=== PATIENT | female | born 1980 | race Caucasian/White ===

== ENCOUNTER 2019-11-27 08:44 | Outpatient (CLI) | payer BC, SELFPAY ==
--- NOTE | ~2019-11-27 | US_ITS ---
EXAMINATION: US aorta DATE: 11/27/2019 09:24 INDICATION: Family history of ischemic heart disease. TECHNIQUE: Grayscale, color Doppler, and pulsed Doppler images of the aorta and common iliac arteries were obtained. COMPARISON: None. FINDINGS: The aorta is normal in caliber and demonstrates mild atherosclerosis. The right common iliac artery i s normal in caliber. The left common iliac artery is normal in caliber. IMPRESSION: 1. No abdominal aortic aneurysm. Reviewed, dictated and finalized at location A.
== END 2019-11-27 08:45 | disposition home or self-care (01) ==
LOC: ANHIMG 08:49
PROVIDERS: PCP Family Medicine; Visit Provider Family Medicine
DX: Z82.49 Family history of ischemic heart disease and other diseases of the circulatory system (principal)
CPT/HCPCS: 76775

== ENCOUNTER → 2020-09-21 14:44 | Outpatient (CLI) | payer BC, SELFPAY ==
--- NOTE | ~2020-09-21 | XR_ITS ---
XR foot RT min 3V DATE: 09/21/2020 14:57 INDICATION: Lateral pain for 2 days after intensive workout TECHNIQUE: 4 views COMPARISON: None FINDINGS: No fracture or dislocation, periosteal reaction or bone destruction. Mild hallux valgus and bunion deformity. IMPRESSION: No acute abnormality Reviewed, dictated and finalized at location A. IMPRESSION: No acute abnormality
== END ==
PROVIDERS: PCP Family Medicine; Visit Provider Family Medicine
DX: M79.671 Pain in right foot (principal)
CPT/HCPCS: 73630

== ENCOUNTER 2021-10-20 07:35 | Outpatient (CLI) | payer BC, SELFPAY ==
--- NOTE | ~2021-10-20 | US_ITS ---
EXAMINATION: US aorta DATE: 10/20/2021 08:22 CDT INDICATION: Family history of ischemic heart disease and abdominal aortic aneurysm. TECHNIQUE: Grayscale, color Doppler, and pulsed Doppler images of the aorta and common iliac arteries were obtained. COMPARISON: None. FINDINGS: The proximal aorta measures 2.7 cm greatest sagittal dimension. The mid aorta measures 2.4 cm greates t sagittal dimension. The distal aorta measures 1.8 cm greatest sagittal dimension. The right common internal iliac artery measures 1.1. The left common iliac artery measures 1.1. IMPRESSION: 1. Normal caliber aorta without evidence for aneurysm. Reviewed, dictated and finalized at location B.
== END 2021-10-20 07:36 | disposition home or self-care (01) ==
PROVIDERS: PCP Family Medicine; Visit Provider Nurse Practitioner Family
DX: Z82.49 Family history of ischemic heart disease and other diseases of the circulatory system (principal)
CPT/HCPCS: 76775

== ENCOUNTER 2022-08-23 16:37 | Emergency (ER) | payer BC, SELFPAY ==
--- NOTE | ~2022-08-23 | XR_ITS ---
EXAM: XR toe 5th LT min 2V DATE: 08/23/2022 18:57 HISTORY: post reduction . COMPARISON: Same date at 5:47 PM. FINDINGS/IMPRESSION: Unchanged alignment of the mildly displaced oblique fracture of the distal aspec t of the left fifth proximal phalange. No acute interval finding. Reviewed, dictated and finalized at location K.
--- NOTE | ~2022-08-23 | XR_ITS ---
EXAM: XR toe 5th LT min 2V DATE: 08/23/2022 18:02 HISTORY: Left 5th toe stubbed into dresser. bruising . COMPARISON: None available. FINDINGS: Normal mineralization. Oblique fracture of the distal aspect of the fifth proximal phalang e, with 2 mm lateral and 3 mm anterior displacement. No lytic or blastic lesion. Joint spaces and phy ses are maintained. No erosion or periosteal change. Soft tissues within normal limits. IMPRESSION: Mildly displaced oblique fracture of the distal aspect of the left fifth proximal phalang e. Reviewed, dictated and finalized at location K. IMPRESSION: Mildly displaced oblique fracture of the distal aspect of the left fifth proximal phalange.
[2022-08-23 17:18] VITALS: BP 145/96; PULSE 88; RESP 14; TEMP 36.8; O2SAT 100
--- NOTE | 2022-08-23 18:45 | ED.LOWEXIN ---
HPI - Extremity Injury (Lower) General Chief Complaint: Extremity Injury, Lower Stated Complaint: Left smallest toe broken Time Seen by Provider: 08/23/22 17:30 History of Present Illness HPI Narrative: Patient is a 42-year-old female here for evaluation of left fifth toe injury. Patient states that she stubbed her toe on the bed frame and since then she has had deformity bruising and pain to the left fifth toe. Denies further injury. Related Data Allergies Allergy/AdvReac Type Severity Reaction Status Date / Time Penicillins Allergy Unknown Unknown Verified 08/23/22 17:30 Review of Systems Review of Systems: Gen.: Denies fevers or chills Eyes: Denies eye pain or visual change ENT: Denies congestion Respiratory: Denies shortness of breath or cough CV: Denies chest pain or palpitations GI: Denies abdominal pain nausea, emesis or diarrhea denies burning, urgency, frequency or hematuria Musculoskeletal: Reports toe pain Neuro: Denies numbness, tingling, weakness or focal weakness Skin: Denies rash Except as documented, all other systems reviewed and negative PMFSH Past Medical History Medical History Acute bronchitis Acute pain of right foot Alopecia BMI 33.0-33.9,adult BMI 39.0-39.9,adult COVID-19 (12/19/19) Encounter for wellness examination in adult Family history of abdominal aortic aneurysm Obesity (BMI 30-39.9) Unspecified dermatitis due to sun Family History Family History (Updated 06/24/18 @ 14:31 by DOCTOR UNKNOWN) Grandparent Diabetes mellitus Hypertension Sibling Hypertension Social History Social History (Updated 03/13/22 @ 13:21 by Sara Butcher MA) Smoking status: Never smoker Alcohol intake: never Substance use: never Substance use type: does not use Lack of Transportation: No Lack of Food: Never True Current Housing: I Have Housing Concerned About Future Housing: No Difficulty Paying Gas/Electric Bills: No Difficulty Paying for Meds: No Currently Unemployed: No Education: High School Diploma/GED Difficulty w/ Childcare or Family Care: No Exam Narrative: Gen: Alert, oriented, no acute distress Eyes: EOMI, no icterus Pulm: Respirations even and unlabored, symmetric thorax expansion, no audible stridor or visible cyanosis CV: Regular rate per telemetry GI: No distension, no voluntary/involuntary guarding Neuro: AOx4, moves all extremities without apparent difficulty or weakness, follows commands CV: 2+ DP and PT pulses bilaterally. MSK: There is an area of bruising to the base of the left fifth toe and there is a deformity to the fifth toe, tenderness to palpation at the base. Skin: No jaundice, no visible bruising, rashes, lesions or wounds on exposed skin Psych: Normal mood/affect, insight/judgement good, adequate fund of knowledge, recent/remote memory intact Course Vital Signs Vital signs: Vital Signs Temperature 98.3 F 08/23/22 17:18 Pulse Rate 88 08/23/22 17:18 Respiratory Rate 14 08/23/22 17:18 Blood Pressure 145/96 H 08/23/22 17:18 Pulse Oximetry 100 08/23/22 17:18 Oxygen Delivery Room Air 08/23/22 17:18 Temperature 98.3 F 08/23/22 17:18 Pulse Rate 88 08/23/22 17:18 Respiratory Rate 14 08/23/22 17:18 Blood Pressure 145/96 H 08/23/22 17:18 Pulse Oximetry 100 08/23/22 17:18 Oxygen Delivery Room Air 08/23/22 17:18 Procedures Orthopedic Fracture Reduction Fracture #1: Fracture Reduction date: 08/23/22 Fracture Reduction time: 18:46 Side: left Fracture Reduction Location: toe Analgesia: nerve block Pre-Procedure Neuro Vascular Exam: normal Technique: direct manipulation Post-reduction neuro exam: intact Post-reduction vascular exam: intact Splint Applied: No (sammy tape) Patient Tolerated Procedure: well MDM - Extremity Injury (Lower) MDM Narrative M
== END 2022-08-23 19:05 | disposition home or self-care (01) ==
PROVIDERS: Emergency Provider Physician Assistant; PCP Family Medicine
DX: S92.512A Displaced fracture of proximal phalanx of left lesser toe(s), initial encounter for closed fracture (principal); E66.9 Obesity, unspecified; Z68.38 Body mass index [BMI] 38.0-38.9, adult; Z86.16 Personal history of COVID-19; W22.03XA Walked into furniture, initial encounter
CPT/HCPCS: 28515; 73660; 99285

== ENCOUNTER 2024-08-02 07:10 | Outpatient (CLI) | payer OTHER, SELFPAY ==
--- NOTE | ~2024-08-02 | MM_ITS ---
EXAMINATION: MM screening adán BI w lorrie HISTORY: Screening TECHNIQUE: Craniocaudal and mediolateral oblique 3-D tomosynthesis images were obtained and synthetic 2-D images were generated. CAD analysis was submitted and interpreted. COMPARISON: No prior mammogram is available for comparison at this institution. BREAST PARENCHYMAL COMPOSITION: Not dense: There are scattered areas of fibroglandular density. FINDINGS: There is no evidence of suspicious mass, calcification, or architectural distortion to sugg est malignancy in either breast. There has been no suspicious interval change. IMPRESSION: 1. No mammographic evidence of malignancy. 2. Recommend routine screening mammography in one year. BI-RADS Category 1: Negative Reviewed, dictated and finalized at location A.
== END 2024-08-02 07:11 | disposition home or self-care (01) ==
LOC: ANHIMG 07:12
PROVIDERS: PCP Family Medicine; Visit Provider Family Medicine
DX: Z12.31 Encounter for screening mammogram for malignant neoplasm of breast (principal)
CPT/HCPCS: 77063; 77067